=== PATIENT | male | born 1940 | race Caucasian/White ===

== ENCOUNTER 2017-03-30 11:43 | Emergency (ER) | payer MEDICARE ==
[~2017-03-30] VITALS: Ht 170.2 cm; Wt 73.6 kg
[2017-03-30 11:44] VITALS: BP 130/65; PULSE 80; RESP 18; TEMP 99.4; O2SAT 96
--- NOTE | 2017-03-30 12:32 | RADRPT ---
EXAM DATE/TIME: 03/30/2017 12:01 [facility] COMPARISON: No previous studies available for comparison. INDICATIONS : Dizziness, confusion RADIATION DOSE: 69.15 CTDIvol (mGy) MEDICAL HISTORY : None SURGICAL HISTORY : None. ENCOUNTER: Initial ACUITY: 1 month PAIN SCALE: 1/10 LOCATION: cranial TECHNIQUE: Multiple contiguous axial images were obtained of the head. Using automated exposure control and adj ustment of the mA and/or kV according to patient size, radiation dose was kept as low as reasonably a chievable to obtain optimal diagnostic quality images. DICOM format image data is available electro nically for review and comparison. FINDINGS: CEREBRUM: The ventricles are normal for age. No evidence of midline shift, mass lesion, hemorrhage or acute in farction. No extra-axial fluid collections are seen. POSTERIOR FOSSA: The cerebellum and brainstem are intact. The 4th ventricle is midline. The cerebellopontine angle i s unremarkable. EXTRACRANIAL: The visualized portion of the orbits is intact. Bilateral air-fluid levels in the maxillary sinuses. Diffuse sinus disease SKULL: The calvaria is intact. No evidence of skull fracture. CONCLUSION: Normal examination except bilateral maxillary sinus disease. Wojciech Coburn MD on March 30, 2017 at 12:28 Board Certified Radiologist. This report was verified electronically.
[2017-03-30 12:37] LABS: AUTOMATED NEUTROPHIL # 6.3 TH/MM3 (1.8-7.7); BASOPHIL % 0.3 % (0.0-2.0); HEMATOCRIT 41.9 % (39.0-51.0); HEMOGLOBIN 14.4 GM/DL (13.0-17.0); LYMPH % 8.4 % (9.0-44.0); LYMPHOCYTE # 0.7 TH/MM3 (1.0-4.8); MEAN CELL VOLUME 86.7 FL (80.0-100.0); MEAN CORPUSCULAR HEMOGLOBIN 29.9 PG (27.0-34.0); MEAN CORPUSCULAR HGB CONC 34.5 % (32.0-36.0); MEAN PLATELET VOLUME 9.5 FL (7.0-11.0); MONO % 15.6 % (0.0-8.0); MONOCYTE # 1.3 TH/MM3 (0-0.9); NEUT % 75.7 % (16.0-70.0); PLATELET COUNT 116 TH/MM3 (150-450); RED BLOOD COUNT 4.83 MIL/MM3 (4.50-5.90); RED CELL DISTRIBUTION WIDTH 12.9 % (11.6-17.2); WHITE BLOOD COUNT 8.3 TH/MM3 (4.0-11.0)
[2017-03-30 12:40] LABS: BACTERIA, URINE OCC /hpf; BILIRUBIN, URINE NEG (NEG); BLOOD, URINE MOD (NEG); GLUCOSE,URINE NEG (NEG); HYALINE CAST, URINE 16 /lpf (RARE); KETONE, URINE NEG (NEG); MUCUS URINE FEW /lpf (OCC); NITRITE,URINE NEG (NEG); PH, URINE 5.5 (5.0-8.5); URINE COLOR YELLOW (YELLW/STRAW); URINE LEUKOCYTE ESTERASE NEG (NEG)
[2017-03-30 12:48] LABS: INTERNATIONAL NORMALIZED RATIO 1.1 RATIO; PROTHROMBIN TIME - PATIENT 10.7 SEC (9.8-11.6)
[2017-03-30 12:58] LABS: ALBUMIN 4.1 GM/DL (3.4-5.0); AST (GOT) 36 U/L (15-37); BICARBONATE 24.8 MEQ/L (21.0-32.0); BLOOD UREA NITROGEN 25 MG/DL (7-18); CALCIUM 9.1 MG/DL (8.5-10.1); CHLORIDE 95 MEQ/L (98-107); CREATININE 1.35 MG/DL (0.60-1.30); GLOMERULAR FILTRATION RATE 51 ML/MIN (>89); GLUCOSE,RANDOM 112 MG/DL (74-106); MAGNESIUM 2.3 MG/DL (1.5-2.5); SODIUM (NA) 130 MEQ/L (136-145)
[2017-03-30 12:59] LABS: ALT (GPT) 27 U/L (12-78)
--- NOTE | 2017-03-30 13:00 | RADRPT ---
EXAM DATE/TIME: 03/30/2017 12:23 [facility] COMPARISON: No previous studies available for comparison. INDICATIONS : Chest pain MEDICAL HISTORY : None. SURGICAL HISTORY : None. ENCOUNTER: Initial ACUITY: 2 weeks PAIN SCORE: 0/10 LOCATION: Bilateral chest FINDINGS: PA and lateral views of the chest demonstrate the lungs to be symmetrically aerated without evidence of mass, infiltrate or effusion. The cardiomediastinal contours are unremarkable. Osseous structure s are intact. CONCLUSION: Normal examination. Wojciech Coburn MD on March 30, 2017 at 12:57 Board Certified Radiologist. This report was verified electronically.
[2017-03-30 13:04] LABS: ALKALINE PHOSPHATASE 76 U/L (45-117); TOTAL BILIRUBIN ADULT 0.7 MG/DL (0.2-1.0); TOTAL PROTEIN 8.1 GM/DL (6.4-8.2); TROPONIN I LESS THAN 0.02 NG/ML (0.02-0.05)
[2017-03-30] MEDS ORDERED: SODIUM CHLOR 0.9% 1000 ML INJ 1,000 ML IV ONE (13:30)
[2017-03-30] MEDS ORDERED: GADODIAMIDE PF 287 MG/ML 5 ML VIAL (for RAD MRI) IVCONTRAST ONE (17:13)
--- NOTE | 2017-03-30 17:32 | RADRPT ---
EXAM DATE/TIME: 03/30/2017 16:58 [facility] COMPARISON: No previous studies available for comparison. INDICATIONS : Dizziness. MEDICAL HISTORY : None. SURGICAL HISTORY : Appendectomy. Hernia repair. ENCOUNTER: Initial ACUITY: 1 day PAIN SCORE: 0/10 LOCATION: Head. Please note a normal MRA of the brain does not entirely exclude the possibility of a small aneurysm, nor the possibility of distal intracranial vessel disease. TECHNIQUE: 3D time of flight MRA was performed. Source images, multiplanar STS MIP, and 3D volume MIP reconstru ctions were reviewed. FINDINGS: Anterior circulation: Distal intracranial internal carotid arteries are patent with flow extending to the middle and anteri or cerebral arteries. There is no evidence for aneurysm, vessel truncation or stenosis, and no eviden ce for vascular malformation. Posterior circulation: Symmetric distal vertebral arteries with flow extending to basilar artery. There is no evidence for aneurysm, vessel truncation or stenosis, and no evidence for vascular malformation. CONCLUSION: 1. Unremarkable MRA examination of the brain. Yahir Myles MD on March 30, 2017 at 17:28 Board Certified Radiologist. This report was verified electronically.
--- NOTE | 2017-03-30 17:59 | RADRPT ---
EXAM DATE/TIME: 03/30/2017 16:58 [facility] COMPARISON: No previous studies available for comparison. INDICATIONS : Mass. Lightheaded, dizziness and loss of balance. CONTRAST: 14 cc Omniscan (gadodiamide) IV MEDICAL HISTORY : None. SURGICAL HISTORY : Appendectomy. Hernia repair. ENCOUNTER: Initial ACUITY: 1 day PAIN SCORE: 0/10 LOCATION: Head. TECHNIQUE: Multiplanar, multisequence MRI of the brain was performed both prior to and following the administrat ion of paramagnetic contrast. FINDINGS: CEREBRUM: Mild diffuse cerebral volume loss. The ventricles are normal for age. No evidence of midline shift, mass lesion, hemorrhage or acute infarction. No extraaxial fluid collections are seen. The pituitar y gland and suprasellar cistern are normal in configuration. WHITE MATTER: [id number] periventricular and focal deep white matter T2 prolongation. POSTERIOR FOSSA: The cerebellum and brainstem are intact. The 4th ventricle is midline. The cerebellopontine angle is unremarkable. The cerebellar tonsils are normal in position. DIFFUSION IMAGING: No focal areas of restricted diffusion are seen. No evidence of acute infarction. EXTRACRANIAL: The visualized portions of the orbits and paranasal sinuses are unremarkable. POST-CONTRAST: No abnormal areas of parenchymal or dural enhancement. No evidence of blood-brain barrier breakdown. CONCLUSION: 1. Senescent changes with mild to moderate small vessel ischemic periventricular white matter [place]. 2. No abnormal enhancement or mass as questioned. Yahir Myles MD on March 30, 2017 at 17:54 Board Certified Radiologist. This report was verified electronically.
[2017-03-30] MEDS ORDERED: MECL-62 PO (18:16)
--- NOTE | 2017-03-30 18:16 | PD ---
HPI Chief Complaint: Dizziness Time Seen by Provider: 13:03 Travel History International Travel<30 days: No Contact w/Intl Traveler<30days: No Traveled to known affect area: No History of Present Illness HPI 77-year-old male came to the emergency room with his with history of dizziness, headaches, balance issues and falls. Patient says that he has not had any syncopal episode. This has been going on for past few weeks. Because it has been progressively worsening they decided to come to the emergency room to be checked out. Patient does drink occasional alcohol. Vital signs were stable. He did not appear to be in any significant distress. [facility] Past Medical History Narrative Medical List of his past medical, surgical, social and family history is reviewed from the nursing note. Social History Tobacco Use: Yes Allergies-Medications (Allergen,Severity, Reaction): Coded Allergies: No Known Allergies (Unverified , 03/30/17) Comments No known drug allergies. Reported Meds & Prescriptions Reported Meds & Active Scripts Active Meclizine (Meclizine HCl) 25 Mg Tab 25 Mg PO TID PRN Narrative Medication List of her home medications reviewed from the nursing note. Review of Systems Except as stated in HPI: all other systems reviewed are Neg Neurologic: Positive: Dizziness Physical Exam Narrative GENERAL: Awake, alert, no obvious distress SKIN: Focused skin assessment warm/dry. HEAD: Atraumatic. Normocephalic. EYES: Pupils equal and round. No scleral icterus. No injection or drainage. ENT: No nasal bleeding or discharge. Mucous membranes pink and moist. NECK: Trachea midline. No JVD. CARDIOVASCULAR: Regular rate and rhythm. No murmur appreciated. RESPIRATORY: No accessory muscle use. Clear to auscultation. Breath sounds equal bilaterally. GASTROINTESTINAL: Abdomen soft, non-tender, nondistended. Hepatic and splenic margins not palpable. MUSCULOSKELETAL: No obvious deformities. No clubbing. No cyanosis. No edema. NEUROLOGICAL: Awake and alert. No obvious cranial nerve deficits. Motor grossly within normal limits. Normal speech. PSYCHIATRIC: Appropriate mood and affect; insight and judgment normal. Data Data Last Documented VS Vital Signs Date Time Temp Pulse Resp B/P (MAP) Pulse Ox O2 Delivery O2 Flow Rate FiO2 03/30/17 19:09 03/30/17 11:44 99.4 80 18 96 Room Air Orders Orders Electrocardiogram (03/30/17 11:49) Complete Blood Count With Diff (03/30/17 11:49) Comprehensive Metabolic Panel (03/30/17 11:49) Magnesium (Mg) (03/30/17 11:49) Ckmb (Isoenzyme) Profile (03/30/17 11:49) Troponin I (03/30/17 11:49) Act Partial Throm Time (Ptt) (03/30/17 11:49) Prothrombin Time / Inr (Pt) (03/30/17 11:49) Urinalysis - C+S If Indicated (03/30/17 11:49) Chest, Pa & Lat (03/30/17 11:49) Ct Brain W/O Iv Contrast(Rout) (03/30/17 11:49) CKMB (03/30/17 12:06) CKMB% (03/30/17 12:06) Mri Brain W&W/O Contrast (03/30/17 ) Mra Brain W/O Contrast (Cow) (03/30/17 ) Sodium Chlor 0.9% 1000 Ml Inj (Ns 1000 M (03/30/17 13:30) Gadodiamide Pf Inj (Omniscan Pf Inj) (03/30/17 17:13) Ed Discharge Order (03/30/17 18:15) Labs Laboratory Tests Test 03/30/17 11:55 03/30/17 12:06 Urine Color YELLOW Urine Turbidity CLEAR Urine pH 5.5 Urine Specific [place] 1.022 Urine Protein 30 mg/dL Urine Glucose (UA) NEG mg/dL Urine Ketones NEG mg/dL Urine Occult Blood MOD Urine Nitrite NEG Urine Bilirubin NEG Urine Urobilinogen LESS THAN 2.0 MG/DL Urine Leukocyte Esterase NEG Urine RBC 1 /hpf Urine WBC LESS THAN 1 /hpf Urine Bacteria OCC /hpf Urine Hyaline Casts 16 /lpf Urine Mucus FEW /lpf Microscopic Urinalysis Comment CULT NOT INDICATED White Blood Count 8.3 TH/MM3 Red Blood Count 4.83 MIL/MM3 Hemoglobin 14.4 GM/DL Hematocrit 41.9 % Mean Corpuscular Volume 86.7 FL Mean Corpuscular Hemoglobin 29.9 PG Mean Corpuscular Hemoglobin Concent 34.5 % Red Cell Distribution Width 12.9 % Platelet Count 116 TH/MM3 Mean Platelet Volume 9.5 FL Neutrophils (%) (Auto) 75.7 % Lymphocytes (%) (Auto) 8.4 % Monocytes (%) (Auto) 15.6 % Eosinophils (%) (Auto) 0.0 % Basophils (%) (Auto) 0.3 % Neutrophils # (Auto) 6.3 TH/MM3 Lymphocytes # (Auto) 0.7 TH/MM3 Monocytes # (Auto) 1.3 TH/MM3 Eosinophils # (Auto) 0.0 TH/MM3 Basophils # (Auto) 0.0 TH/MM3 CBC Comment DIFF FINAL Differential Comment Prothrombin Time 10.7 SEC Prothromb Time International Ratio 1.1 RATIO Activated Partial Thromboplast Time 31.3 SEC Blood Urea Nitrogen 25 MG/DL Creatinine 1.35 MG/DL Random Glucose 112 MG/DL Total Protein 8.1 GM/DL Albumin 4.1 GM/DL Calcium Level 9.1 MG/DL Magnesium Level 2.3 MG/DL Alkaline Phosphatase 76 U/L Aspartate Amino Transf (AST/SGOT) 36 U/L Alanine Aminotransferase (ALT/SGPT) 27 U/L Total Bilirubin 0.7 MG/DL Sodium Level 130 MEQ/L Potassium Level 4.1 MEQ/L Chloride Level 95 MEQ/L Carbon Dioxide Level 24.8 MEQ/L Anion Gap 10 MEQ/L Estimat Glomerular Filtration Rate 51 ML/MIN Total Creatine Kinase 735 U/L Creatine Kinase MB 1.8 NG/ML Creatine Kinase MB % 0.2 % Troponin I LESS THAN 0.02 NG/ML MDM Medical Decision Making Medical Screen Exam Complete: Yes Emergency Medical Condition: Yes Medical Record Reviewed: Yes Interpretation(s) Twelve-lead EKG was reviewed by me. Normal sinus rhythm, normal axis, incomplete right bundle branch block, LVH by voltage criteria, PACs. Heart rate of 75 bpm. Differential Diagnosis CVA, intracerebral tumor, BP V Narrative Course 6:19 PM blood test results and CAT scan of the head was within normal limit. I' ve ordered an MRI and MRA to rule out any CVA or mass in the cerebellum. The report just came back and they're within normal limit as well. I'm comfortable discharging him home at this point. My workup so far has been complete from my stand point. Procedures EKG Prior to Arrival: No Diagnosis Primary Impression: Dizziness Referrals: Primary Care Physician Additional Instructions: Take the medication as per the prescription direction. Follow-up with your primary care. Return to ER condition worsens or any other new concerns. You should not be driving or lifting heavy machinery until the symptoms have completely resolved. Med/Other Pt SpecificInfo: Prescription(s) given Scripts Meclizine (Meclizine) 25 Mg Tab 25 MG PO TID Y for VERTIGO, #15 TAB 0 Refills Prov: Bev Jon MD 03/30/17 Disposition: 01 DISCHARGE HOME Condition: Stable Bev Jon MD Mar 30, 2017 18:16
--- NOTE | 2017-03-31 14:19 | EKG ---
Date Performed: 03/30/2017 Time Performed: 12:02:33 PTAGE: 77 years EKG: Sinus rhythm WITH OCCASIONAL SUPRAVENTRICULAR PREMATURE COMPLEXES INCOMPLETE RIGHT BUNDLE BRANCH BLOCK VOLTAGE CR ITERIA FOR LVH NONSPECIFIC T-WAVE ABNORMALITY ABNORMAL ECG NO PREVIOUS TRACING DOCTOR: Sam Laird Interpretating Date/Time 03/31/2017 14:18:20
== END 2017-03-30 19:17 | disposition home or self-care (01) ==
LOC: NEPE 11:43
DX: R42 Dizziness and giddiness (principal); J32.0 Chronic maxillary sinusitis; R94.31 Abnormal electrocardiogram [ECG] [EKG]; Z72.0 Tobacco use
CPT/HCPCS: 70450; 70544; 70553; 71046; 80053; 81001; 82550; 82552; 83735; 84484; 85025; 85610; 85730; 93005; 99285; A9579; J7030